=== PATIENT | female | born 1975 | race Asian ===

== ENCOUNTER 2018-04-30 10:55 | Emergency (ER) | payer OTHER ==
[2018-04-30 11:04] VITALS: BP 112/82
--- NOTE | 2018-04-30 12:22 | UC ---
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 HAS SEEN RHEUMATOLOGY, INFECTIOUS DISEASES AND HER PRIMARY FOR THIS WITH NO RESOLUTION. WAS HERE IN 2016 AND HAD MULTIPLE TESTS DONE INCLUDING SYPHILIS, TSH, CONNECTIVE TISSUE SCREENING, HSV/VZV, HIV. ALL NEGATIVE. IS HERE TODAY COMPLAINING OF PERSISTENT RECURRENT SORES IN HER MOUTH. NO FEVER. IS IN A SEXUALLY MONOGAMOUS RELATIONSHIP WITH HER . HAS HAD BCG VACCINE. PREVIOUS TESTING FOR TB NEGATIVE. - History of Current Complaint Chief Complaint: UCGeneralIllness Stated Complaint: SORES IN MOUTH Hx Obtained From: Patient Hx Last Menstrual Period: 04/28/18 Onset Severity: Moderate Current Severity: Moderate Pain Intensity: 3 Pain Scale Used: 0-10 Numeric Location: Other - MOUTH Character: Pain Aggravating Factor(s): Touch Alleviating Factor(s): Nothing - Allergy/Home Medications Allergies/Adverse Reactions: Allergies Allergy/AdvReac Type Severity Reaction Status Date / Time aspirin Allergy Itching Verified 04/30/18 11:05 Review of Systems Constitutional: Negative Skin: Other - ORAL ULCERS Respiratory: Negative Cardiovascular: Negative Gastrointestinal: Negative All Other Systems Reviewed And Are Negative: Yes PMH/Surg Hx/FS Hx/Imm Hx Previously Healthy: Yes - Surgical History Surgical History: None - Family History Known Family History: Negative: Hypertension - Social History Alcohol Use: None Substance Use Type: None Smoking Status (MU): Never Smoked Tobacco Physical Exam Triage Information Reviewed: Yes Appearance: Well-Appearing, No Pain Distress, Well-Nourished Vital Signs: Initial Vital Signs Temp 98 F 04/30/18 10:59 Pulse 87 04/30/18 10:59 Resp 16 04/30/18 10:59 BP 112/82 04/30/18 10:59 Pulse Ox 99 04/30/18 10:59 Vital Signs Reviewed: Yes Eyes: Positive: Conjunctiva Clear ENT: Positive: Hearing grossly normal, Pharyngeal erythema, Other - SCATTERED APHTHOUS ULCERS BUCCAL MUCOSA, GINGIVA Neck: Positive: Supple, Nontender, No Lymphadenopathy Respiratory: Positive: No respiratory distress, No accessory muscle use Cardiovascular: Positive: Pulses Normal Abdomen Description: Positive: Soft Musculoskeletal: Positive: No Edema Neurological: Positive: Alert Psychological: Positive: Age Appropriate Behavior Skin: Negative: rashes Course/Dx - Diagnoses Provider Diagnoses: GINGIVOSTOMATITIS Discharge - Sign-Out/Discharge Documenting (check all that apply): Patient Departure - Discharge Plan Condition: Stable Disposition: HOME Prescriptions: Magic Mouth Was-LILIA/MAAL/LIDO* 5 - 10 ml SWISH SWAL QID PRN #150 ml PRN Reason: Sore Throat Triamcinolone DENTAL PASTE(NF) 1 applic MT TID PRN #1 tube PRN Reason: Pain Patient Education Materials: Canker Sores (ED), Gingivostomatitis (ED) Referrals: [facility] [Provider Group] - If Needed Additional Instructions: UNCLEAR CAUSE OF YOUR RECURRENT APHTHOUS STOMATITIS. WILL CHECK QUANTIFERON TB GOLD, SYPHILIS (GO TO LAB ON [address]) AND GC/CHLAMYDIA TODAY. FOLLOW-UP WITH DERMATOLOGY FOR FURTHER EVALUATION. USE TRIAMCINOLONE PASTE TO HELP WITH INFLAMMATION. DAB MAGIC MOUTHWASH ON AFFECTED AREAS WITH A QTIP IF NEEDED. DERMATOLOGY IN [place] DR. ANGELA HANSON [facility], [facility] [address]; [address] [place] [address] Dr. Winnie Da Silva Nandini Address: [address] [place] [address] [address] [place] [address] DR. SHONDA MOE [facility] [address] [place] [address] [address] IN [place] Dr[address] Loree Mcmanus DERMATOLOGY IN [place] DR. BOB JONES [phone] - Billing Disposition and Condition Condition: STABLE Disposition: Home
== END 2018-04-30 12:30 | disposition home or self-care (01) ==
LOC: UCEAST 10:55
DX: K05.10 Chronic gingivitis, plaque induced (principal); Z88.6 Allergy status to analgesic agent
CPT/HCPCS: 87491; 87591; 99212; G0463